=== PATIENT | male | born 1940 | race Caucasian/White ===

== ENCOUNTER → 2017-03-01 08:56 | Outpatient (CLI) | payer MEDICARE, SELFPAY ==
[2017-03-01 09:34] LABS: Basophils # 0.1 K/mm3 (0-0.2); Basophils % 0.9 % (0.1-2.0); Eosinophils # 0.2 K/mm3 (0.0-0.4); Eosinophils % 3.5 % (0.1-12.0); Hematocrit 48.7 % (42.0-52.0); Hemoglobin 16.6 g/dL (14.1-18.0); Lymphocytes % 30.1 K/mm3 (10-50); Mean Corpuscular Hemoglobin 30.6 pg (27.0-31.2); Mean Platelet Volume 8.4 fl (7.4-10.4); Monocytes # 0.4 K/mm3 (0.1-1.0); Monocytes % 6.5 % (1.7-9.3); Neutrophils # 3.9 K/mm3 (1.8-7.8); Platelet Count 169 K/mm3 (142-424); Red Blood Count 5.41 M/mm3 (4.60-6.20); Red Cell Distribution Width 12.8 % (11.5-17.5); White Blood Count 6.6 K/mm3 (4.8-10.8)
[2017-03-01 10:45] LABS: Erythrocyte Sedimentation Rate 20 mm/hr (0-20)
[2017-03-01 11:52] LABS: Hemoglobin A1C 5.5 % (0.0-7.0)
[2017-03-01 12:11] LABS: C-Reactive Protein < 0.2 mg/L (0.0-0.9)
[2017-03-02 13:37] LABS: Folate 13.9 ng/mL (>3.0); Vitamin B12 574 pg/mL (232-1245)
[2017-03-05 17:10] LABS: Vitamin B1 121.8 nmol/L (66.5-200.0)
== END ==
PROVIDERS: PCP Ophthalmology; Visit Provider Ophthalmology
DX: H47.211 Primary optic atrophy, right eye (principal); Z79.899 Other long term (current) drug therapy
CPT/HCPCS: 36415; 82607; 82746; 83036; 85025; 85651; 86140

== ENCOUNTER 2017-04-24 10:23 | Emergency (ER) | payer MEDICARE, SELFPAY ==
[2017-04-24 10:24] VITALS: BP 151/86; PULSE 72; RESP 18; TEMP 36.6; O2SAT 98; BMI 27.2
[2017-04-24 10:42] LABS: Basophils # 0.1 K/mm3 (0-0.2); Basophils % 0.6 % (0.1-2.0); Eosinophils # 0.1 K/mm3 (0.0-0.4); Eosinophils % 0.8 % (0.1-12.0); Hematocrit 50.6 % (42.0-52.0); Hemoglobin 17.2 g/dL (14.1-18.0); Lymphocytes # 1.2 K/mm3 (0.7-4.5); Lymphocytes % 15.3 K/mm3 (10-50); Mean Corpuscular Hemoglobin 31.2 pg (27.0-31.2); Mean Corpuscular Volume 91.8 fl (80-94); Mean Platelet Volume 8.5 fl (7.4-10.4); Monocytes # 0.4 K/mm3 (0.1-1.0); Monocytes % 5.1 % (1.7-9.3); Neutrophils % 78.2 % (37.0-80.0); Platelet Count 168 K/mm3 (142-424); Red Blood Count 5.52 M/mm3 (4.60-6.20); Red Cell Distribution Width 12.8 % (11.5-17.5); White Blood Count 7.7 K/mm3 (4.8-10.8)
--- NOTE | 2017-04-24 10:45 | CT_ITS ---
CT head/brain wo con HISTORY: Dizziness, nausea, ringing in ears ORDERING PHYSICIAN: Mayra Aldridge MD PATIENT AGE: 76 years COMPARISON: 02/03/2017 TECHNIQUE: Axial images obtained without contrast. Brain and bone windows reviewed. FINDINGS: No midline shift, mass effect, intracranial hemorrhage or hydrocephalus is evident. There is a small lipoma along the medial aspect of the tentorium on the right near the torcula. No sinus air-fluid level or mastoid effusion. There is mild mucosal thickening of sphenoid sinus. IMPRESSION: No change with no acute intracranial findings
[2017-04-24 11:04] LABS: Alanine Aminotransferase 25 U/L (12-78); Albumin Level 4.1 gm/dL (3.4-5.0); Alkaline Phosphatase 93 U/L (46-116); Anion Gap 12.8 mEq/L (5-15); Aspartate Amino Transferase 16 U/L (15-37); Bilirubin,Total 0.5 mg/dL (0.2-1.0); Blood Urea Nitrogen 15 mg/dL (7-18); CKMB Relative Index 1.5 U/L (0-4.0); Calcium 9.3 mg/dL (8.5-10.1); Carbon Dioxide 29 mmol/L (21.0-32.0); Chloride 102 mmol/L (98-107); Creatine Kinase 81 U/L (39-308); Creatine Kinase MB 1.2 mg/ml (0.0-3.6); Creatinine Clearance Estimated 70 mL/min (0-300); Creatinine,Serum 0.95 mg/dL (0.70-1.30); Estimated Glomerular Filt Rate 77 ml/min (>60); GFR (African American) 93 ML/MIN (>60); Glucose 145 mg/dL (74-106); Potassium 3.8 mmoL/L (3.5-5.1); Sodium 140 mmol/L (136-145); Total Protein,Serum 8.1 gm/dL (6.4-8.2); Troponin I < 0.02 ng/ml (0.00-0.06)
--- NOTE | 2017-04-24 11:09 | HMH.EDGENADL ---
ED Disposition Clinical Impression: Benign positional vertigo, Dehydration, Autonomic dysfunction, Dysrhythmia, Vomiting Disposition: Home, Self-Care Condition on Discharge: Fair Instructions: Vertigo Additional Instructions: 1- drink plenty of fluids. 2- fall precautions. 3- you may take ADDITIONAL antivert as needed. 4- you have zofran at home as you told me , please use it. 5- return for new sx or as needed. 6- see Dr Sarmiento in AM for a recheck. Referrals: Ling Fletcher [Primary Care Provider] - - Critical Care Critical Care Time: No Attestation: On 04/24/17, the high probability of a clinically significant, sudden or life threatening deterioration of the following system(s) required my full and direct attention, intervention and personal management. The time I documented below is in addition to time spent performing reported procedures but includes the following listed in this critical care notation. Medical Decision Making - Medical Records Medical records reviewed: Yes: I reviewed the patient's medical records. Vital Signs: 04/24/17 10:24 04/24/17 13:49 Temperature 97.9 F Temperature Source Oral Pulse Rate [Right Brachial] 72 64 Respiratory Rate 18 18 Blood Pressure [Right Arm] 151/86 128/64 Blood Pressure Mean [Right Arm] 107 85 Blood Pressure Source [Right Arm] Automatic Cuff Automatic Cuff Blood Pressure Position [Right Arm] Sitting Sitting 02 Sat by Pulse Oximetry 98 97 Oxygen Delivery Method Room Air Room Air - Lab Data Lab results reviewed: Yes: I reviewed the patient's lab results. Lab Results 04/24/17 10:15: WBC 7.7, RBC 5.52, Hgb 17.2, Hct 50.6, MCV 91.8, MCH 31.2, MCHC 34.0, RDW 12.8, Plt Count 168, MPV 8.5, Neut % (Auto) 78.2, Lymph % (Auto) 15.3, [place] % (Auto) 5.1, Eos % (Auto) 0.8, Baso % (Auto) 0.6, Neut # (Auto) 6.0, Lymph # (Auto) 1.2, [place] # (Auto) 0.4, Eos # (Auto) 0.1, Baso # (Auto) 0.1 04/24/17 10:15: Sodium 140, Potassium 3.8, Chloride 102, Carbon Dioxide 29, Anion Gap 12.8, BUN 15, Creatinine 0.95, Estimated Creat Clear 70, Estimated GFR 77, Est GFR ( Amer) 93, Glucose 145 H, Calcium 9.3, Total Bilirubin 0.5, AST 16, ALT 25, Alkaline Phosphatase 93, Total Creatine Kinase 81, CK-MB (CK-2) 1.2, CK-MB (CK-2) Rel Index 1.5, Troponin I < 0.02, Total Protein 8.1, Albumin 4.1, Globulin 4.0 H, Albumin/Globulin Ratio 1.0 L 04/24/17 11:24: Urine Color Yellow, Urine Appearance Clear, Urine pH 7.0, Ur Specific [place] 1.020, Urine Protein Negative, Urine Glucose (UA) Negative, Urine Ketones Negative, Urine Blood Negative, Urine Nitrate Negative, Urine Bilirubin Negative, Urine Urobilinogen 0.2, Ur Leukocyte Esterase Negative, Urine WBC Occasional, Ur Squamous Epith Cells Occasional, Urine Bacteria Trace, Stool Occult Blood Cancelled 04/24/17 12:10: Troponin I < 0.02 Result diagrams: 04/24/17 10:15 04/24/17 10:15 Orders (Tests/Meds): ED MEDICATIONS Discontinued Medications Generic Name Dose Route Start Last Admin Trade Name Freq PRN Reason Stop Dose Admin Sodium Chloride 1,000 mls @ 999 mls/hr 04/24/17 11:30 04/24/17 11:40 Sod Chlor 0.9% 1000ml Bag IV 04/24/17 12:30 999 mls/hr .Q1H1M GLORIA Administration Meclizine HCl 25 mg 04/24/17 11:29 04/24/17 11:40 Antivert 25mg Tablet PO 04/24/17 11:30 25 mg ONCE ONE Administration Ondansetron HCl 4 mg 04/24/17 10:39 04/24/17 10:40 Zofran 4mg/2ml Vial IV 04/24/17 10:40 4 mg ONCE ONE Administration ORDERS Category Date Time Status Occult Blood,Stool Stat Lab 04/24/17 Ordered - Radiology Data #1 Image(s): Chest, Abdomen Image Reviewed: Yes I reviewed the patient's radiology image Preliminary Findings: Abnormal Cardiomegaly with no acute findings. - CT Data CT Scan: Head Time Received: 14:[address] Reviewed: Yes: I have viewed the radiologist's interpretation Preliminary Findings: Normal/NAD - ECG Data Tracing #1 Electronically paced rhyth
--- NOTE | 2017-04-24 11:12 | ED_ITS ---
ED Disposition Clinical Impression: Benign positional vertigo, Dehydration, Autonomic dysfunction, Dysrhythmia, Vomiting Disposition: Home, Self-Care Condition on Discharge: Fair Instructions: Vertigo Additional Instructions: 1- drink plenty of fluids. 2- fall precautions. 3- you may take ADDITIONAL antivert as needed. 4- you have zofran at home as you told me , please use it. 5- return for new sx or as needed. 6- see Dr Sarmiento in AM for a recheck. Referrals: Ling Fletcher [Primary Care Provider] - - Critical Care Critical Care Time: No Attestation: On 04/24/17, the high probability of a clinically significant, sudden or life threatening deterioration of the following system(s) required my full and direct attention, intervention and personal management. The time I documented below is in addition to time spent performing reported procedures but includes the following listed in this critical care notation. Medical Decision Making - Medical Records Medical records reviewed: Yes: I reviewed the patient's medical records. Vital Signs: 04/24/17 10:24 04/24/17 13:49 Temperature 97.9 F Temperature Source Oral Pulse Rate [Right Brachial] 72 64 Respiratory Rate 18 18 Blood Pressure [Right Arm] 151/86 128/64 Blood Pressure Mean [Right Arm] 107 85 Blood Pressure Source [Right Arm] Automatic Cuff Automatic Cuff Blood Pressure Position [Right Arm] Sitting Sitting 02 Sat by Pulse Oximetry 98 97 Oxygen Delivery Method Room Air Room Air - Lab Data Lab results reviewed: Yes: I reviewed the patient's lab results. Lab Results 04/24/17 10:15: WBC 7.7, RBC 5.52, Hgb 17.2, Hct 50.6, MCV 91.8, MCH 31.2, MCHC 34.0, RDW 12.8, Plt Count 168, MPV 8.5, Neut % (Auto) 78.2, Lymph % (Auto) 15.3 , [place] % (Auto) 5.1, Eos % (Auto) 0.8, Baso % (Auto) 0.6, Neut # (Auto) 6.0, Lymph # (Auto) 1.2, [place] # (Auto) 0.4, Eos # (Auto) 0.1, Baso # (Auto) 0.1 04/24/17 10:15: Sodium 140, Potassium 3.8, Chloride 102, Carbon Dioxide 29, Anion Gap 12.8, BUN 15, Creatinine 0.95, Estimated Creat Clear 70, Estimated GFR 77, Est GFR ( Amer) 93, Glucose 145 H, Calcium 9.3, Total Bilirubin 0.5, AST 16, ALT 25, Alkaline Phosphatase 93, Total Creatine Kinase 81, CK-MB ( CK-2) 1.2, CK-MB (CK-2) Rel Index 1.5, Troponin I < 0.02, Total Protein 8.1, Albumin 4.1, Globulin 4.0 H, Albumin/Globulin Ratio 1.0 L 04/24/17 11:24: Urine Color Yellow, Urine Appearance Clear, Urine pH 7.0, Ur Specific [place] 1.020, Urine Protein Negative, Urine Glucose (UA) Negative, Urine Ketones Negative, Urine Blood Negative, Urine Nitrate Negative, Urine Bilirubin Negative, Urine Urobilinogen 0.2, Ur Leukocyte Esterase Negative, Urine WBC Occasional, Ur Squamous Epith Cells Occasional, Urine Bacteria Trace, Stool Occult Blood Cancelled 04/24/17 12:10: Troponin I < 0.02 Result diagrams: 04/24/17 10:15 04/24/17 10:15 Orders (Tests/Meds): ED MEDICATIONS Discontinued Medications Generic Name Dose Route Start Last Admin Trade Name Freq PRN Reason Stop Dose Admin Sodium Chloride 1,000 mls @ 999 mls/hr 04/24/17 11:30 04/24/17 11:40 Sod Chlor 0.9% 1000ml Bag IV 04/24/17 12:30 999 mls/hr .Q1H1M GLORIA Administration Meclizine HCl 25 mg 04/24/17 11:29 04/24/17 11:40 Antivert 25mg Tablet PO 04/24/17 11:30 25 mg ONCE ONE Administration Ondansetron HCl 4 mg 04/24/17 10:39 04/24/17 10:40
[2017-04-24 11:35] LABS: Microscopic, Urine URINE MICROSCOPIC (MICROSCOPIC)
[2017-04-24 11:38] LABS: Appearance,Urine CLEAR (Clear); Bilirubin,Urine Negative (Negative); Blood, Urine Negative (Negative); Color,Urine YELLOW (Yellow); Glucose,Urine (UA) Negative (Negative); Ketones,Urine Negative (Negative); Leukocyte Esterase,Urine Negative (Negative); Nitrate,Urine Negative (Negative); Protein,Urine Negative (Negative); Urobilinogen,Urine 0.2 EU/dl (0.2)
--- NOTE | 2017-04-24 11:41 | XR_ITS ---
XR acute abdomen series HISTORY: ITS.REASON: vomiting ORDERING PHYSICIAN: Mayra Aldridge MD PATIENT AGE: 76 years COMPARISON: None FINDINGS: From the chest shows no acute finding. There is a bipolar pacemaker present from the left subclavian approach. Nonobstructive bowel gas pattern. No evidence of free air. There is an irregular calcific density in the central pelvic region and could be related to overlying sclerotic focus within the sacrum, bladder stone, or other soft tissue calcification. CT may determine etiology of clinically warranted. IMPRESSION: No acute finding Irregular calcific density in pelvis as described above
[2017-04-24 11:45] LABS: Bacteria,Urine Trace /lpf; Squamous Epithelial Cell,Urine Occasional #/hpf (0-5); WBC,Urine Occasional #/hpf (0-3)
[2017-04-24 12:35] LABS: Troponin I < 0.02 ng/ml (0.00-0.06)
[2017-04-24 13:49] VITALS: BP 128/64; PULSE 64; RESP 18; O2SAT 97
[2017-04-24 14:17] VITALS: BP 128/64; PULSE 64; RESP 18; TEMP 36.6; O2SAT 97
== END 2017-04-24 14:21 | disposition home or self-care (01) ==
PROVIDERS: Emergency Provider Emergency Medicine; PCP Ophthalmology
DX: H81.10 Benign paroxysmal vertigo, unspecified ear (principal); E86.0 Dehydration; G90.9 Disorder of the autonomic nervous system, unspecified; Z79.82 Long term (current) use of aspirin
CPT/HCPCS: 70450; 74021; 80053; 81001; 82550; 82553; 84484; 85025; 93005; 96365; 96374; 96375; 99284; J2405

== ENCOUNTER → 2018-01-18 15:12 | Outpatient (CLI) | payer MEDICARE, SELFPAY | PROVIDERS: Visit Provider Physician Assistant | DX: R07.9 Chest pain, unspecified (principal); I25.10 Atherosclerotic heart disease of native coronary artery without angina pectoris | CPT/HCPCS: 93005 ==

== ENCOUNTER → 2018-01-24 07:05 | Outpatient (CLI) | payer MEDICARE, SELFPAY ==
--- NOTE | 2018-01-24 07:14 | NM_ITS ---
History and Indications: Coronary artery disease, status post pacemaker, hypertension, hyperlipidemia and chest pain Procedure: Patient received a 0.4 mg of intravenous Lexiscan, resting heart rate was 70 beats prominent, resting pressure 150/80, with Lexiscan maximum heart rate achieved was 80 bpm which is less than 85% of the maximum predicted heart rate and a blood pressure 137/70. With Lexiscan patient complained of shortness of breath Electrocardiogram: Resting electrocardiogram showed sinus rhythm right bundle branch block, with Lexiscan there is less than 1.[address] segment depression noted from the baseline EKG. The EKG portion of the Lexiscan Myoview is nondiagnostic. Cardiac stress and resting SPECT images: Cardiac stress and resting SPECT images were obtained using technetium 99 Myoview 32.0 mCi stress and 9.9 mCi at stress, gated SPECT for calculation of the ejection fraction also done. Cardiac stress and the suspect images show uniform myocardial activity without segmental perfusion abnormality, computer derived ejection fraction is 63% with no regional wall motion abnormality, right ventricle is normal size and contractility. Conclusion: 1. The EKG portion of the Lexiscan Myoview is nondiagnostic. 2. No scintigraphic evidence of reversible ischemia seen, without ejection fraction is 63% with no regional wall motion abnormality. Right ventricle is normal size and contractility. 3. Normal Lexiscan Myoview study.
--- NOTE | 2018-01-24 07:37 | HMH.ITSHM ---
Current Home Medications as stated by this patient Luis Bazan or employment representative. []HYDROCHLOROTHIAZIDE METOPROLOL MECLIZINE LEVOTHYROXINE ASA AMLODIPINE
--- NOTE | 2018-01-24 09:15 | CI_ITS ---
Cerebrovascular Exam Indications: 785.9 Bruit. 785.9 Bruit. IMPRESSIONS 1. The bilateral vertebral arteries are patent with normal antegrade flow. 2. Study suggests 20-49% stenosis involving the right internal carotid artery and the left internal carotid artery. No change from the study of 14-Aug-2016. Carotid duplex study. Complete study and Doppler flow study including spectral analysis, color and see scale imaging. Height: Height: 172.7cm. Height: 68in. Weight: Weight: 78.9kg. Weight: 173.6lb. Body mass index: BMI: 26.5kg/m^2. Body surface area: BSA: 1.96m^2. Location: Vascular laboratory. Patient status: Outpatient. Tables: Arterial flow: + +--------+--------+ Location V sys V ed + +--------+--------+ Right CCA - proximal 88cm/s 20.4cm/s + +--------+--------+ Right CCA - distal 84.5cm/s 22.3cm/s + +--------+--------+ Right ECA 88.2cm/s -------- + +--------+--------+ Right ICA - proximal 73.3cm/s 29.2cm/s + +--------+--------+ Right ICA - mid 85.1cm/s 25.1cm/s + +--------+--------+ Right ICA - distal 74.3cm/s 22.4cm/s + +--------+--------+ Right vertebral 26.3cm/s -------- + +--------+--------+ Left CCA - proximal 87.8cm/s 19.7cm/s + +--------+--------+ Left CCA - distal 61.8cm/s 16.6cm/s + +--------+--------+ Left ECA 91.4cm/s -------- + +--------+--------+ Left ICA - proximal 89.3cm/s 27cm/s + +--------+--------+ Left ICA - mid 80.1cm/s 27.6cm/s + +--------+--------+ Left ICA - distal 82.7cm/s 27.1cm/s + +--------+--------+ Left vertebral 29.4cm/s -------- + +--------+--------+ Velocity ratios: + + + + + + Right, V sys Right, V ed Left, V sys Left, V ed + + + + + + Max ICA/dist CCA 1.01 1.31 1.44 1.66 + + + + + + (Report amended ) Electronically signed by: Bryce Melchor [id number]
== END ==
PROVIDERS: PCP Family Medicine; Visit Provider Physician Assistant
DX: R07.9 Chest pain, unspecified (principal); I65.23 Occlusion and stenosis of bilateral carotid arteries; I25.10 Atherosclerotic heart disease of native coronary artery without angina pectoris; I10 Essential (primary) hypertension; E78.5 Hyperlipidemia, unspecified
CPT/HCPCS: 78452; 93017; 93880; A9502; J2785

== ENCOUNTER → 2018-04-04 13:54 | Outpatient (CLI) | payer MEDICARE, SELFPAY ==
--- NOTE | 2018-04-04 14:06 | XR_ITS ---
XR toe LT min 2V CLINICAL INDICATION: Pain swelling and redness with abscess medially ITS.REASON: CELLULITIS OF LEFT GREAT TOE ORDERING PHYSICIAN: Bird Garcia MD PATIENT AGE: 77 years Comparison: None FINDINGS: No fracture or dislocation. No bony destructive process or soft tissue gas. No radio opaque foreign body. Vascular calcification is noted. IMPRESSION: No acute bony findings evident
== END ==
PROVIDERS: PCP Family Medicine; Visit Provider Family Medicine
DX: L03.032 Cellulitis of left toe (principal)
CPT/HCPCS: 73660

== ENCOUNTER 2020-10-01 08:57 | Outpatient (CLI) | payer MEDICARE, SELFPAY ==
[2020-10-01 09:30] VITALS: BP 120/68; PULSE 70; RESP 18; TEMP 37.1; O2SAT 98
[2020-10-01 10:08] VITALS: BP 135/69; PULSE 60; RESP 14; O2SAT 95
[2020-10-01 10:29] VITALS: BP 127/74; PULSE 60; RESP 16; TEMP 36.9; O2SAT 94
== END 2020-10-01 10:31 | disposition home or self-care (01) ==
LOC: INF 08:59
PROVIDERS: PCP Family Medicine; Visit Provider Family Medicine
DX: U07.1 COVID-19 (principal)
CPT/HCPCS: 96365

== ENCOUNTER 2022-12-05 06:48 | Emergency (ER) | payer MEDICARE, SELFPAY ==
[2022-12-05 06:52] VITALS: BP 161/85; PULSE 72; RESP 15; TEMP 36.7; O2SAT 97; BMI 27.3
--- NOTE | 2022-12-05 06:54 | ECG_ITS ---
APPROVED REPORT Exam: Resting ECG HR:69 bpm ECG Measurements Heart Rate 69 AXES WY 271 P 157 QRSd 172 QRS 26 QT 429 T 8 QTc 449 Conclusion ELECTRONIC ATRIAL PACEMAKER INDETERMINATE AXIS RIGHT BUNDLE BRANCH BLOCK [120+ ms QRS DURATION, UPRIGHT V1, 40+ ms S IN I/aVL/V4/V5/V6] ABNORMAL ECG UNCONFIRMED REPORT Electronically signed by : Bird Moon MD 12/06/2022 15:17:01
--- NOTE | 2022-12-05 06:56 | HMH.EDGENADL ---
Discharge Plan Disposition Patient Disposition: Home, Self-Care Condition: Good Prescriptions Prescriptions: New acyclovir 800 mg tablet 800 mg PO 5XDAY 7 Days Qty: 35 0RF gabapentin 300 mg capsule 300 mg PO Q8H Qty: 12 0RF hydrocodone-acetaminophen 5-325 mg tablet 1 tab PO Q8H PRN (Reason: pain) Qty: 12 0RF No Action metoprolol succinate 50 MG tablet extended release 24 hr 50 mg PO DAILY amlodipine 10 MG tablet 10 mg PO DAILY Patient Comments: aspirin 81 MG tablet,chewable 81 mg PO DAILY hydrochlorothiazide 25 MG tablet 25 mg PO DAILY Patient Comments: meclizine 25 MG tablet,chewable 25 mg PO TID PRN (Reason: Vertigo) levothyroxine [Tirosint] 25 MCG capsule 25 mcg PO DAILY Referrals Follow up/Referrals: Provider,Referral, MD [Primary Care Provider] - See instructions Activity Restrictions/Add. Instructions Additional Instructions/Restrictions: You were evaluated in the emergency department for rash and pain. We believe you have shingles. Take the prescribed medications as directed. Acyclovir: Do not skip doses, do not stop taking this early. This is the medication that is treating the viral infection. Hydrocodone: This medication may make you constipated, take a laxative or fiber supplement in order to not get extremely constipated. This medication may also make you sleepy or confused. Gabapentin: This medication may make you sleepy or confused. Monitor your symptoms on these medications. Continue taking your other home medications as previously prescribed. Make an appointment with your primary care physician for reevaluation in the next 2 to 3 days. Return to the emergency department with any new, worsening, or otherwise concerning symptoms. Clinical Impressions Clinical Impression: Herpes zoster infection of thoracic region Instructions Patient Instructions: DI for Shingles Discharge ED Provider: Vanessa Byers General Adult HPI <Sonam Roach DO - Last Filed: 12/05/22 07:03> General Chief complaint: Skin/Abscess/Foreign Body Stated complaint: Pain Time Seen by Provider: 12/05/22 06:51 History of Present Illness HPI narrative: This patient is an 82-year-old male with history of hypertension, hyperlipidemia, hypothyroidism, and atrial pacemaker in place presented to the emergency department for evaluation with concern for a rash with pain to his back and chest. He reports that he started developing a rash and burning pain with intermittent sharp twinges of pain radiating from his back around to the left side of his chest just below his nipple line. They have been trying Benadryl as well as other [id number] medications at home without good improvement. He denies any substernal chest pain, shortness of breath, fevers, chills, cough, congestion, abdominal pain, nausea or vomiting, diaphoresis, or other concerns associated. It is worse with palpation of the rash/lesions. Related Data Home Medications Medication Instructions Recorded Confirmed amlodipine 10 mg tablet 10 mg PO DAILY blood pressure 04/24/17 04/24/17 aspirin 81 mg chewable tablet 81 mg PO DAILY heart 04/24/17 04/24/17 hydrochlorothiazide 25 mg tablet 25 mg PO DAILY blood pressure 04/24/17 04/24/17 levothyroxine 25 mcg capsule 25 mcg PO DAILY thyroid 04/24/17 04/24/17 (Tirosint) meclizine 25 mg chewable tablet 25 mg PO TID PRN Vertigo 04/24/17 04/24/17 metoprolol succinate 50 mg 50 mg PO DAILY blood pressure 04/24/17 04/24/17 tablet,extended release 24 hr Previous Rx's Medication Instructions Recorded acyclovir 800 mg tablet 800 mg PO 5XDAY 7 days #35 tabs 12/05/22 gabapentin 300 mg capsule 300 mg PO Q8H #12 caps 12/05/22 hydrocodone 5 mg-acetaminophen 325 1 tab PO Q8H PRN pain #12 tabs 12/05/22 mg tablet Allergies Allergy/AdvReac Type Severity Reaction Status Date / Time lisinopril Allergy Unknown Verified 04/24/17 11:03 PFSH <A
[2022-12-05 07:00] VITALS: BP 146/77; PULSE 70; RESP 18; O2SAT 97
[2022-12-05 07:30] VITALS: BP 127/72; PULSE 62; RESP 18; O2SAT 92
[2022-12-05 08:00] VITALS: BP 123/66; PULSE 60; O2SAT 95
[2022-12-05 08:02] VITALS: BP 114/75; PULSE 63; O2SAT 96
--- NOTE | 2022-12-05 08:03 | PC.NURSE ---
pt laying in bed. at bedside. states pain is better after medication. md aware. no questions or concerns voiced. call light within reach.
[2022-12-05 08:22] VITALS: BP 114/75; PULSE 71; RESP 18; TEMP 36.6; O2SAT 92
== END 2022-12-05 08:23 | disposition home or self-care (01) ==
PROVIDERS: Emergency Provider Emergency Medicine
DX: B02.9 Zoster without complications (principal); I45.19 Other right bundle-branch block; I10 Essential (primary) hypertension; E78.5 Hyperlipidemia, unspecified; E03.9 Hypothyroidism, unspecified; Z95.0 Presence of cardiac pacemaker
CPT/HCPCS: 93005; 96372; 99283

== ENCOUNTER 2023-08-31 12:07 | Outpatient (CLI) | payer MEDICARE, SELFPAY ==
--- NOTE | 2023-08-31 12:20 | XR_ITS ---
FINAL REPORT CLINICAL HISTORY: THORACIC BACK PAIN FINDINGS: THORACIC SPINE Three views demonstrate no acute fracture. There are moderate degenerative changes with multilevel osteophytes. There is a mild chronic midthoracic spine compression. There is no malalignment. IMPRESSION: Degenerative and chronic appearing findings. Reviewed, Interpreted and Dictated by Luis Franco III, MD Transcribed by Roya Carlin Authenticated and [facility]
== END 2023-08-31 23:59 | disposition home or self-care (01) ==
LOC: RAD 12:09
PROVIDERS: PCP Family Medicine; Visit Provider Family Medicine
DX: M54.6 Pain in thoracic spine (principal)
CPT/HCPCS: 72072

== ENCOUNTER 2024-02-22 06:00 | Day surgery (SDC) | payer MEDICARE, SELFPAY ==
--- NOTE | 2024-02-17 10:10 | SUR.PREOP ---
1000: Attempted. VM left with instructions and call back number.
[2024-02-17 10:17] VITALS: BMI 26.6
[2024-02-22 06:22] VITALS: BP 162/78; PULSE 85; RESP 18; TEMP 36.5; O2SAT 96
[2024-02-22] MEDS: LACTATED RINGERS 1000ML 1,000 ML 25 ML IV (06:39)
[2024-02-22 07:12] VITALS: O2SAT 98
--- NOTE | 2024-02-22 07:20 | P.PNANES_ITS ---
[facility] Disclaimer: The information contained in this section may have been updated after the patient was seen, as this information can be updated by other users. Medical History (Updated 02/22/24 @ 06:25 by Edel Berger RN) History of COVID-19 Thyroid disease Skin cancer Pacemaker History of left heart catheterization (LHC) Surgical History (Updated 02/22/24 @ 06:25 by Edel Berger RN) History of surgery History of right heart catheterization (RHC) Family History (Updated 02/22/24 @ 06:25 by Edel Berger RN) Other Cancer Colon cancer Social History (Updated 02/22/24 @ 06:26 by Edel Berger RN) Smoking Status: Never smoker alcohol intake: never substance use type: denies use current occupational status: retired Travel in the last 8 weeks: None caffeine: Yes [facility] Anesthesia Checklist Patient Identification Patient Identification: Arm Band Structural Data Admitted From: Home Planned Operative Procedure/s: Colonoscopy Consent for Planned Operative Procedure(s) Verified: Yes Verified Documents: Surgical Consent and History and Physical NPO Status Verified Time NPO: 00:00 Additional verifications Anesthesia Reactions: No Airway Assessment Mallampati Score:: Class II C-Spine Mobility Assessed: Yes TMJ Mobility Assessed: Yes Dentition: Edentulous Neurological Assessment Level of Consciousness: Awake, Alert and Appropriate Anesthesia Plan Anesthesia Risk discussed: Yes Anesthesia Plan: Verified ASA Class: III Anesthesia Type: MAC
[2024-02-22 07:48] VITALS: BP 103/64; PULSE 66; RESP 16; TEMP 36.8; O2SAT 96
--- NOTE | 2024-02-22 07:48 | HMH.SCOPE ---
Procedure: Date: 02/22/24 Patient Date of :: 1940 Procedure Performed:: Colonoscopy with polypectomy Indications:: Positive Cologuard History of colon polyps Family history of colon cancer Performing Provider:: Rogelio Bacon MD Referring Provider:: . Sedation:: Monitored anesthesia care Procedure:: After informed consent was obtained the patient was taken to the endoscopy suite. Sedation ensued after the patient was transferred to the left lateral decubitus position. Pulse, blood pressure, and oxygen saturation were monitored throughout the procedure. Digital rectal exam revealed an enlarged prostate. The colonoscope was placed in position. The entire colon was evaluated. The colonoscope was carefully removed and the patient was transferred to recovery in stable condition. Please see findings and specimens below for detail. Findings:: Prostatic enlargement Bowel preparation moderate Fairly profound spasticity Significant tortuosity (worse in sigmoid) Polyps (see specimens) Specimens:: Right colon polyp (cold biopsy forceps) Complex sessile polyp at 60 cm and adjacent sessile polyp (cold snare) Recommendations:: Timing of repeat colonoscopy is pending pathology will likely be in 6-12 months with alternate/extended bowel preparation secondary to moderate preparation, tortuosity, spasticity, and recent positive Cologuard. Ultimately may benefit from barium enema. Further evaluation/management regarding prostatic enlargement deferred to primary care provider. Complications:: No immediate Estimated blood obtained (mL): 1 Colonoscopy Component Colonoscopy Component Was a colonoscopy performed during today's procedure?: Yes Recommended follow up colonoscopy of at least 10 years?: No If no, follow up colonoscopy recommended in ___ years?: (See above) Reason for not recommending >/= 10 yr follow-up interval?: (See above)
[2024-02-22 07:58] VITALS: BP 102/62; PULSE 62; RESP 16; O2SAT 95
[2024-02-22 08:08] VITALS: BP 101/62; PULSE 63; RESP 16; O2SAT 95
[2024-02-22 08:18] VITALS: BP 116/65; BP 116/75; PULSE 65; RESP 16; RESP 18; TEMP 36.6; O2SAT 96
== END 2024-02-22 08:25 | disposition home or self-care (01) ==
PROVIDERS: PCP Family Medicine; Visit Provider Surgery
PROC: 0DJD8ZZ Inspection of Lower Intestinal Tract, Via Natural or Artificial Opening Endoscopic (ICD-10-PCS; CPT 45380; principal; 2024-02-22 07:30)
DX: R19.5 Other fecal abnormalities (principal); Z86.0100 Personal history of colon polyps, unspecified; Z80.0 Family history of malignant neoplasm of digestive organs; N40.0 Benign prostatic hyperplasia without lower urinary tract symptoms; K63.5 Polyp of colon; D12.4 Benign neoplasm of descending colon
CPT/HCPCS: 45380; 45385; J7120

== ENCOUNTER 2025-01-30 06:18 | Day surgery (SDC) | payer MEDICARE, SELFPAY ==
[2025-01-25 11:39] VITALS: BMI 28.1
[2025-01-30 06:38] VITALS: BP 148/83; PULSE 78; RESP 16; TEMP 36.4; O2SAT 97; BMI 28.0
--- NOTE | 2025-01-30 06:42 | P.HP_ITS ---
HPI HPI HPI: This is an 84-year-old gentleman who presents for short-term repeat colonoscopy. Colonoscopy on February 22, 2024 (performed for positive Cologuard) was complicated by moderate bowel preparation, significant spasticity, and significant tortuosity. A fairly large prostate also noted. Tubular adenomas including a lobulated right colon polyp and adjacent complex polyps at 60 cm were excised. Discussion with regard to possible need for barium enema for improved visualization was discussed with the patient. The decision was made to initially proceed with a short-term repeat colonoscopy. [facility] Disclaimer: The information contained in this section may have been updated after the patient was seen, as this information can be updated by other users. Medical History History of COVID-19 Thyroid disease Skin cancer Pacemaker History of left heart catheterization (LHC) Surgical History History of surgery HEART STENTS X3 History of right heart catheterization (RHC) Family History Other Cancer Colon cancer Social History Smoking Status: Never smoker alcohol intake: never substance use type: denies use current occupational status: retired Travel in the last 8 weeks?: None caffeine: Yes Have you lived/traveled outside [place] in past 30 days?: No Contact w/someone who lives/traveled outside US past 30 days?: No Exposure to someone with infectious disease in past 14 days?: No Do you have a fever (greater than 100.4 F or 38 C)?: No Have you tested positive for COVID-19?: No Exposed to someone with COVID-19 in past 14 days?: No Do you have a sore throat?: No Do you have a cough?: No Do you have any weakness?: No Are you experiencing any nausea/vomitting?: No Do you have any diarrhea?: No Are you experiencing any unusual bleeding?: No Do you have any muscle aches/pain?: No Do you have any abdominal pain?: No Are you experiencing loss of taste or smell?: No Other Medical History Have you received the Pneumonia Vaccine: No Review of Systems Review of Systems Review of systems:: pertinent systems reviewed and negative unless documented below ENT Ears, Nose, Mouth, and Throat: Reports abnormal hearing *Neurologic Neurologic: Reports abnormal hearing Meds Home Medications and Allergies Home Medications ?Medication ?Instructions ?Recorded ?Confirmed ?Type amlodipine 10 mg tablet 10 mg PO DAILY blood pressur e 04/24/17 01/30/25 History aspirin 81 mg chewable tablet 81 mg PO DAILY heart 05/0901/30/25 History hydrochlorothiazide 25 mg tablet 25 mg PO DAILY blood pressure 04/24/17 01/30/25 History levothyroxine 25 mcg capsule 25 mcg PO DAILY thyroid 0 04/24/17 01/30/25 History (Tirosint) meclizine 25 mg chewable tablet 25 mg PO TID PRN Verti go 04/24/17 01/30/25 History (Dramamine (meclizine)) metoprolol succinate 50 mg 50 mg PO DAILY blood pressu re 04/24/17 01/30/25 History tablet,extended release 24 hr (Toprol XL) New Prescriptions to Start Prescriptions: Allergies Allergy/AdvReac Type Severity Reaction Status Date / Time lisinopril Allergy Unknown Irritable Verified 01/25/25 11:41 Exam Constitutional Constitutional: no acute distress *Routine HEENT Exam Head: Present normocephalic Eye: Present EOMI ENT: Present mucous membranes moist *Routine Neck Exam Neck: Present full ROM *Routine Respiratory Exam Respiratory: Absent respiratory distress *Routine Cardiovascular Exam Cardiovascular: Absent tachycardia *Routine Abdominal Exam Abdominal: Present soft *Routine Rectal Exam Rectal:: deferred *Routine Genitalia Exam Genitalia:: deferred *Routine Extremities Exam Extremities: Present full ROM *Routine Skin Exam Skin: Absent erythema *Routine Neurological Exam Neurological: Present alert Assessment and Plan *Assessment and plan (1) Positive colorectal cancer screening using Cologuard test: Status: Acute Category: Medical Code(s): R19.5 - Other fecal abnormalities (2) Tubular adenoma of colon: Status: Acute Category: Medical Code(s): D12.6 - Benign neoplasm of colon, unspecified Plan Colonoscopy today I have discussed the risks and benefits including, but not limited to: Bleeding Infection Damage to surrounding tissue Inherent risks of sedation The patient agrees to proceed.
--- NOTE | 2025-01-30 06:45 | HMH.SCOPE ---
Procedure: Date: 01/30/25 Patient Date of :: 1940 Procedure Performed:: Colonoscopy Indications:: History of colon polyps History of positive Cologuard study Note: Colonoscopy on February 22, 2024 (performed for positive Cologuard) was complicated by moderate bowel preparation, significant spasticity, and significant tortuosity. A fairly large prostate also noted. Tubular adenomas including a lobulated right colon polyp and adjacent complex polyps at 60 cm were excised. Discussion with regard to possible need for barium enema for improved visualization was discussed with the patient. The decision was made to initially proceed with a short-term repeat colonoscopy. Performing Provider:: Rogelio Bacon MD Referring Provider:: . Sedation:: Monitored anesthesia care Procedure:: After informed consent was obtained the patient was taken to the endoscopy suite. Sedation ensued after the patient was transferred to the left lateral decubitus position. Pulse, blood pressure, and oxygen saturation were monitored throughout the procedure. Digital rectal exam revealed no significant abnormality. The colonoscope was placed in position. The entire colon was evaluated. The colonoscope was carefully removed and the patient was transferred to recovery in stable condition. Please see findings and specimens below for detail. Findings:: Bowel preparation moderate (poor in areas) Unchanged enlarged prostate Fairly significant spasticity Fairly significant tortuosity Specimens:: None Recommendations:: Consider barium enema secondary to persistent limitations in visualization. Consider gastroenterology consultation for evaluation/management of possible chronic constipation (note limited bowel preparation on multiple occasions). Fairly short-term repeat colonoscopy warranted (pending results of possible barium enema). Complications:: No immediate complications; however, persistent limitations in visualization noted Estimated blood obtained (mL): 0 Colonoscopy Component Colonoscopy Component Was a colonoscopy performed during today's procedure?: Yes Recommended follow up colonoscopy of at least 10 years?: No If no, follow up colonoscopy recommended in ___ years?: (See above) Reason for not recommending >/= 10 yr follow-up interval?: (See above)
[2025-01-30] MEDS: LACTATED RINGERS 1000ML 1,000 ML 50 ML IV (06:50)
--- NOTE | 2025-01-30 07:38 | EXP.ANES.CKL ---
[facility] Disclaimer: The information contained in this section may have been updated after the patient was seen, as this information can be updated by other users. Medical History History of COVID-19 Thyroid disease Skin cancer Pacemaker History of left heart catheterization (LHC) Surgical History History of surgery HEART STENTS X3 History of right heart catheterization (RHC) Family History Other Cancer Colon cancer Social History Smoking Status: Never smoker alcohol intake: never substance use type: denies use current occupational status: retired Travel in the last 8 weeks?: None caffeine: Yes Have you lived/traveled outside [place] in past 30 days?: No Contact w/someone who lives/traveled outside [place] past 30 days?: No Exposure to someone with infectious disease in past 14 days?: No Do you have a fever (greater than 100.4 F or 38 C)?: No Have you tested positive for COVID-19?: No Exposed to someone with COVID-19 in past 14 days?: No Do you have a sore throat?: No Do you have a cough?: No Do you have any weakness?: No Are you experiencing any nausea/vomitting?: No Do you have any diarrhea?: No Are you experiencing any unusual bleeding?: No Do you have any muscle aches/pain?: No Do you have any abdominal pain?: No Are you experiencing loss of taste or smell?: No [facility] Anesthesia Checklist Patient Identification Patient Identification: Arm Band Structural Data Admitted From: Home Planned Operative Procedure/s: Colonoscopy Consent for Planned Operative Procedure(s) Verified: Yes Verified Documents: Surgical Consent and History and Physical NPO Status Verified Time NPO: 02:00 (finished prep) Additional verifications Anesthesia Reactions: No Airway Assessment Mallampati Score:: Class II C-Spine Mobility Assessed: Yes TMJ Mobility Assessed: Yes Dentition: Edentulous Neurological Assessment Level of Consciousness: Awake, Alert and Appropriate Anesthesia Plan Anesthesia Risk discussed: Yes Anesthesia Plan: Verified ASA Class: III Anesthesia Type: MAC
[2025-01-30 08:52] VITALS: BP 108/69; PULSE 72; RESP 16; TEMP 36.3; O2SAT 94
[2025-01-30 09:02] VITALS: BP 115/65; PULSE 62; RESP 18; TEMP 36.3; O2SAT 95
[2025-01-30 09:12] VITALS: BP 120/60; PULSE 65; RESP 18; TEMP 36.3; O2SAT 100
[2025-01-30 09:22] VITALS: BP 120/62; PULSE 62; RESP 18; TEMP 36.3; O2SAT 94
== END 2025-01-30 09:22 | disposition home or self-care (01) ==
PROVIDERS: PCP Family Medicine; Visit Provider Surgery
PROC: 0DJD8ZZ Inspection of Lower Intestinal Tract, Via Natural or Artificial Opening Endoscopic (ICD-10-PCS; CPT 45378; principal; 2025-01-30 07:30)
DX: R19.5 Other fecal abnormalities (principal); Z86.0101 Personal history of adenomatous and serrated colon polyps; K58.9 Irritable bowel syndrome, unspecified; Q43.8 Other specified congenital malformations of intestine; N40.0 Benign prostatic hyperplasia without lower urinary tract symptoms; E07.9 Disorder of thyroid, unspecified; Z85.828 Personal history of other malignant neoplasm of skin; Z95.0 Presence of cardiac pacemaker; Z95.5 Presence of coronary angioplasty implant and graft; Z79.82 Long term (current) use of aspirin; Z79.890 Hormone replacement therapy; Z79.899 Other long term (current) drug therapy; Z88.8 Allergy status to other drugs, medicaments and biological substances
CPT/HCPCS: 45378; J2003; J2704; J7120